=== PATIENT | male | born 1960 | race Two or more races ===

== ENCOUNTER 2017-04-22 14:21 | Emergency (ER) | payer SELFPAY ==
[~2017-04-22] VITALS: Ht 172.7 cm; Wt 81.6 kg
[2017-04-22 14:42] VITALS: BP 159/88
[2017-04-22] MEDS ORDERED: SULF1TAB24 PO (15:04)
[2017-04-22] MEDS ORDERED: HYDR-971 PO (15:04)
--- NOTE | 2017-04-22 15:04 | PHYS DOC ---
Past Medical History Past Medical History: Hypertension Past Surgical History: No Surgical History Alcohol Use: None Drug Use: None Adult General Chief Complaint Chief Complaint: INSECT BITE HPI HPI Patient is a 57 year old male presents to the emergency department stating that he has an abscess on his left radial forearm. Patient states he has had this for the last 2 days. He denies any drainage or discharge coming from the site. He states that the area is very hard and tender. He denies any numbness or tingling into his wrist or hand. He denies any fever, chills or any nausea or vomiting he believes that his tetanus immunization is less than 5 years. Patient states that he has been trying to take Tylenol and ibuprofen for pain and discomfort with minimal relief. [] Review of Systems Review of Systems Constitutional: Denies fever or chills [] Eyes: Denies change in visual acuity, redness, or eye pain [] HENT: Denies nasal congestion or sore throat [] Respiratory: Denies cough or shortness of breath [] Cardiovascular: No additional information not addressed in HPI [] GI: Denies abdominal pain, nausea, vomiting, bloody stools or diarrhea [] : Denies dysuria or hematuria [] Musculoskeletal: Denies back pain or joint pain [] Integument: Denies rash or skin lesions. Abscess left forearm Neurologic: Denies headache, focal weakness or sensory changes [] Endocrine: Denies polyuria or polydipsia [] All other systems were reviewed and found to be within normal limits, except as documented in this note. Allergies Allergies Allergies Coded Allergies Type Severity Reaction Last Updated Verified No Known Drug Allergies 04/22/17 No Physical Exam Physical Exam Constitutional: Well developed, well nourished, no acute distress, non-toxic appearance. [] HENT: Normocephalic, atraumatic, bilateral external ears normal, oropharynx moist, no oral exudates, nose normal. [] Eyes: PERRLA, EOMI, conjunctiva normal, no discharge. [] Neck: Normal range of motion, no tenderness, supple, no stridor. [] Cardiovascular:Heart rate regular rhythm Lungs & Thorax: No respiratory distress noted Skin: Warm, dry, no erythema, no rash. Left radial forearm with a cough both sides area that appears to be red with the inner part of it being very white hard and tender. No drainage or discharge noted from the site. Extremities: No tenderness, no cyanosis, no clubbing, ROM intact, no edema. [] Neurologic: Alert and oriented X 3, normal motor function, normal sensory function, no focal deficits noted. [] Psychologic: Affect normal, judgement normal, mood normal. [] Current Patient Data Vital Signs Vital Signs Date Time Temp Pulse Resp B/P (MAP) Pulse Ox O2 Delivery O2 Flow Rate FiO2 04/22/17 14:42 98.6 83 18 99 Room Air 98.6 EKG EKG [] Radiology/Procedures Radiology/Procedures [] Course & Med Decision Making Course & Med Decision Making Pertinent Labs and Imaging studies reviewed. (See chart for details) Patient will be provided with an update with his tetanus immunization here in the emergency department. He'll be discharged home with hydrocodone for severe pain and discomfort. He was instructed this medication will cause drowsiness do not take feedings. Alert and oriented. Patient will be placed on Bactrim 2 tablets twice a day for the next 10 days. [facility] or return back here in the next 3-5 days for wound recheck. Recommended warm moist packs to the area 5 times a day. Patient was provided with signs and symptoms to return back to the emergency department. Patient agrees with discharge instructions jimmy regimens and follow-up recommendations. [] Dragon Disclaimer Dragon Disclaimer This electronic medical record was generated, in whole or in part, using a voice recognition dictation system. Departure Departure Impression: Primary Impression: Abscess of left arm Disposition: 01 HOME, SELF-CARE Condition: STABLE Referrals: UNKNOWN PCP NAME (PCP) Patient Instructions: Abscess, [id number] Additional Instructions: Activity as tolerated Medication as prescribed [place] for severe pain. This medication will cause drowsiness do not take if you need to be alert and oriented Warm moist packs to the area 5 times a day Elevation as much as possible Followup with primary care provider in 3-5 days Return to the emergency department as needed for signs and symptoms that become worse Scripts Hydrocodone/Apap 5-325 (NORCO 5-325 TABLET) 1 Each Tablet 1 TAB PO PRN Q6HRS Y for PAIN, #20 TAB 0 Refills Prov: ANJANA PAK APRN 04/22/17 Sulfamethoxazole/Trimethoprim (BACTRIM DS TABLET) 1 Each Tablet 2 TAB PO BID, #40 TAB Prov: ANJANA PAK APRN 04/22/17 ANJANA PAK APRN Apr 22, 2017 15:04
[2017-04-22] MEDS ORDERED: DIPHTH,PERTUSS(ACELL),TET TOX 0.5 ML DISP.SYRIN. VAX IM ONE (15:30)
[2017-04-22] MEDS ORDERED: HYDROcodone/APAP 5/325MG 1 TAB TABLET PO ONE (15:45)
== END 2017-04-22 15:49 | disposition home or self-care (01) ==
LOC: ER 14:21
DX: L02.414 Cutaneous abscess of left upper limb (principal); I10 Essential (primary) hypertension
CPT/HCPCS: 90471; 90715; 99283-25